=== PATIENT | male | born 2000 | race Caucasian/White ===

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

== ENCOUNTER → 2021-06-29 | Outpatient (CLI) | payer OTHER ==
--- NOTE | 2021-06-29 12:10 | US ---
EXAMINATION TYPE: US thyroid st tissue head/ EXAMINATION TYPE: US thyroid st tissue head/neck DATE OF EXAM: 06/29/2021 COMPARISON: NONE CLINICAL HISTORY: R22.1 Localized swelling mass and lump neck. Patient states that he no longer feels the lump to the left of his cervical spine. At this area is an oval hypoechoic structure measuring 1.7 x 0.3 x 0.7 cm IMPRESSION: 1. Hypoechoic described structure previous palpable abnormality may be a lymph node. Monitoring and f ollow-up can be performed as clinically indicated.
== END | disposition home or self-care (01) ==
LOC: RADUSWWP 09:38
PROVIDERS: ATTEND Family Medicine
DX: R22.1 Localized swelling, mass and lump, neck (principal)
CPT/HCPCS: 76536

== ENCOUNTER 2022-05-04 02:51 | Emergency (ER) | payer OTHER ==
--- NOTE | 2022-05-04 04:33 | ED ---
Male Urogenital HPI - General Stated complaint: urine retention/bladder pain Time Seen by Provider: 05/04/22 04:19 Source: patient Limitations: no limitations - History of Present Illness Initial comments: Patient is a 21-year-old man who states that since about 11 PM he has been feeling frequent urge to urinate. He has some discomfort in the suprapubic area. Complaint: other Onset/Timin -: hour(s) Location: abdomen Radiation: none Severity: moderate Quality: burning Consistency: intermittent Improves with: none Worsens with: urination Reports: denies other symptoms - Related Data Previous Rx's Medication Instructions Recorded Ibuprofen [Motrin] 600 mg PO Q8HR PRN #20 tab 09/06/19 HYDROcodone/APAP 5-325MG [[place] 1 tab PO Q4HR PRN 3 Days #18 tab 05/04/22 5-325] Tamsulosin [Flomax] 0.4 mg PO DAILY #14 cap 05/04/22 Allergies Allergy/AdvReac Type Severity Reaction Status Date / Time No Known Allergies Allergy Verified 09/06/19 20:47 Review of Systems ROS Statement: Those systems with pertinent positive or pertinent negative responses have been documented in the HPI. ROS Other: All systems not noted in ROS Statement are negative. Constitutional: Denies: fever, chills Respiratory: Denies: cough, dyspnea Cardiovascular: Denies: chest pain, palpitations, edema Gastrointestinal: Denies: abdominal pain, nausea, vomiting, diarrhea Genitourinary: Reports: dysuria, frequency, testicular pain. Denies: discharge, testicular mass Musculoskeletal: Denies: back pain Skin: Denies: rash Neurological: Denies: headache, weakness Past Medical History Past Medical History: No Reported History History of Any Multi-Drug Resistant Organisms: None Reported Additional Past Surgical History / Comment(s): wisdom teeth Past Psychological History: No Psychological Hx Reported Past Alcohol Use History: None Reported Past Drug Use History: None Reported General Exam General appearance: alert, in no apparent distress Head exam: Present: atraumatic, normocephalic Eye exam: Present: normal appearance. Absent: scleral icterus, conjunctival injection Neck exam: Present: normal inspection Respiratory exam: Present: normal lung sounds bilaterally. Absent: respiratory distress, wheezes, rales, rhonchi, stridor Cardiovascular Exam: Present: regular rate, normal rhythm, normal heart sounds. Absent: systolic murmur, diastolic murmur, rubs, gallop GI/Abdominal exam: Present: soft. Absent: distended, tenderness, guarding, rebound, rigid, mass exam: Present: normal inspection. Absent: testicular tenderness, scrotal swelling, vertical testicular lie Extremities exam: Present: normal inspection, normal capillary refill. Absent: pedal edema, calf tenderness Neurological exam: Present: alert Skin exam: Present: warm, dry, intact, normal color. Absent: rash Course Vital Signs 05/04/22 05/04/22 05/04/22 04:56 06:15 11:12 Temperature 98.4 F 98.0 F Pulse Rate 70 71 98 Respiratory 19 16 15 Rate Blood Pressure 124/68 116/64 123/82 O2 Sat by Pulse 98 99 99 Oximetry Medical Decision Making - Lab Data Lab Results 05/04/22 Range/Units 04:10 Urine Color Light Yellow Urine Appearance Cloudy (Clear) Urine pH 6.5 (5.0-8.0) Ur Specific [place] 1.013 (1.001-1.035) Urine Protein Negative (Negative) Urine Glucose (UA) Negative (Negative) Urine Ketones Negative (Negative) Urine Blood Large H (Negative) Urine Nitrite Negative (Negative) Urine Bilirubin Negative (Negative) Urine Urobilinogen <2.0 (<2.0) mg/dL Ur Leukocyte Esterase Negative (Negative) Urine RBC >182 H (0-5) /hpf Urine WBC <1 (0-5) /hpf Amorphous Sediment Occasional H (None) /hpf Hyaline Casts 1 (0-2) /lpf Urine Mucus Rare H (None) /hpf Disposition Clinical Impression: Kidney stone on left side Disposition: HOME SELF-CARE Condition: Good Instructions (If sedation given, give patient instructions): Kidney Stones (ED) Prescriptions: Tamsulosin [Flomax] 0.4 mg PO DAILY #14 cap HYDROcodone/APAP 5-325MG [[place] 5-325] 1 tab PO Q4HR PRN 3 Days #18 tab PRN Reason: Pain Is patient prescribed a controlled substance at d/c from ED?: No Referrals: Patrick Sanchez MD [Primary Care Provider] - 1-2 days Lawson Claros MD [STAFF PHYSICIAN] - 1-2 days
[2022-05-04 04:50] LABS: Amorphous Sediment,Urine Occasional /hpf; Appearance,Urine Cloudy (Clear); Bilirubin,Urine Negative (Negative); Blood,Urine Large (Negative); Color,Urine Light Yellow; Glucose,Urine (UA) Negative (Negative); Hyaline Casts,Urine 1 /lpf (0-2); Ketones,Urine Negative (Negative); Leukocyte Esterase,Urine Negative (Negative); Mucus,Urine Rare /hpf; Nitrite,Urine Negative (Negative); PH, Urine 6.5 (5.0-8.0); Protein,Urine Negative (Negative); RBC,Urine >182 /hpf (0-5); Specific Gravity,Urine 1.013 (1.001-1.035); Urobilinogen,Urine <2.0 mg/dL (<2.0); WBC,Urine <1 /hpf (0-5)
[2022-05-04 06:16] VITALS: TEMP 98
--- NOTE | 2022-05-04 09:51 | CT ---
EXAMINATION TYPE: CT abdomen pelvis wo con CT DLP: 355.6 mGycm, Automated exposure control for dose reduction was used. DATE OF EXAM: 05/04/2022 8:28 AM COMPARISON: None CLINICAL INDICATION:Male, 21 years old with history of stone suspected; Urine retention/bladder pain TECHNIQUE: Axial CT of the abdomen and pelvis. Sagittal and coronal reformats were created on a [employer] workstation. Contrast used: None Oral contrast used: without Oral Contrast FINDINGS: LOWER CHEST: Unremarkable ABDOMEN LIVER: Unremarkable GALLBLADDER AND BILE DUCTS: Unremarkable. PANCREAS: Unremarkable. SPLEEN: Unremarkable. ADRENAL GLANDS: Unremarkable. KIDNEYS AND URETERS: Mild left hydronephrosis secondary obstructing 5 mm calculus at the distal left ureter just proximal to ureterovesicular junction. No evidence of right renal calculus or hydronephrosis. PELVIS BLADDER: Urinary bladder is distended. REPRODUCTIVE: Unremarkable. ABDOMEN & PELVIS STOMACH AND BOWEL: No evidence of bowel obstruction. PERITONEUM: No evidence of pneumoperitoneum or free fluid. VASCULATURE: No evidence of aortic aneurysm. MUSCULOSKELETAL: No acute osseous abnormalities LYMPH NODES: No gross evidence for lymphadenopathy. SOFT TISSUE/ABDOMINAL WALL: Unremarkable IMPRESSION: Mild left hydronephrosis secondary to a 5 mm calculus at the distal left ureter just proximal to the ureterovesicular junction.
[2022-05-04] MEDS ORDERED: TAMSULOSIN 0.4 MG CAP.ER.24H PO STA (10:45)
[2022-05-04 11:13] VITALS: BP 123/82; PULSE 98; RESP 15
== END 2022-05-04 11:12 | disposition home or self-care (01) ==
LOC: EC 02:51
DX: N13.2 Hydronephrosis with renal and ureteral calculous obstruction (principal)
CPT/HCPCS: 74176; 81001; 99284